=== PATIENT | male | born 1985 | race Caucasian/White ===

== ENCOUNTER 2023-07-28 08:27 | Emergency (ER) | payer SELFPAY ==
[~2023-07-28] VITALS: Ht 172.7 cm; Wt 85.0 kg
[2023-07-28 08:33] VITALS: O2SAT 98
[2023-07-28] MEDS ORDERED: SENN-178 MT (09:56)
[2023-07-28] MEDS ORDERED: POLY17PO3 MT (09:56)
[2023-07-28] MEDS ORDERED: PHEN51CR24 TP (09:56)
[2023-07-28] MEDS ORDERED: DOCU-138 MT (09:56)
[2023-07-28 10:48] VITALS: BP 100/69; PULSE 99; RESP 18; TEMP 98.4
== END 2023-07-28 10:35 | disposition home or self-care (01) ==
LOC: ER 09:39
DX: K64.4 Residual hemorrhoidal skin tags (principal); K59.00 Constipation, unspecified
CPT/HCPCS: 99282